=== PATIENT | male | born 1965 | race Caucasian/White ===

== ENCOUNTER → 2019-12-18 | Outpatient (CLI) | payer BC ==
--- NOTE | 2019-12-18 08:25 | MR ---
EXAMINATION TYPE: MR knee LT wo con DATE OF EXAM: 12/18/2019 COMPARISON: None HISTORY: Pain in left knee TECHNIQUE: Multiplanar, multisequence imaging of the left knee is performed without IV contrast. FINDINGS: MEDIAL MENISCUS: Abnormal increased signal is noted within the medial meniscus body and posterior hor n, the posterior horn shows linear increased signal extending to the articular surface, sagittal imag e #[id number], 30 and 31. LATERAL MENISCUS: Increased signal within the lateral meniscus appears intrasubstance CRUCIATE LIGAMENTS: No evident tear COLLATERAL LIGAMENTS: Increased signal in the popliteus tendon may be due to tendinosis or strain EXTENSOR MECHANISM: Visualized quadriceps and patellar tendons are intact. EFFUSION: No significant suprapatellar joint effusion. POPLITEAL CYST: Minimal semimembranosus gastrocnemius cyst is present. TRICOMPARTMENT SPACES: Joint space loss is present in the medial compartment CARTILAGE: Grade 3 to grade IV chondromalacia present in the medial compartment, grade 2-3 chondromal acia posterior patella., Grade 2 to grade 3 chondral malacia lateral compartment BONE MARROW SIGNAL: Probable reactive marrow signal changes are present in the medial femoral condyle . OTHER: There is subcutaneous edema changes present. This is noted predominantly at the anterior aspe ct of the proximal leg and the prepatellar location IMPRESSION: Osteoarthritis, tear the posterior horn the medial meniscus and additional findings above.
== END | disposition home or self-care (01) ==
LOC: RADMRIMAIN 06:36
PROVIDERS: ATTEND Orthopaedic Surgery
DX: M17.12 Unilateral primary osteoarthritis, left knee (principal); S83.242A Other tear of medial meniscus, current injury, left knee, initial encounter; M25.862 Other specified joint disorders, left knee; M22.42 Chondromalacia patellae, left knee; R93.6 Abnormal findings on diagnostic imaging of limbs

== ENCOUNTER → 2020-08-15 | Outpatient (CLI) | payer BC ==
[2020-08-15 09:06] LABS: Basophils % (A) 0 %; Eosinophils # (A) 0.2 k/uL (0-0.7); Eosinophils % (A) 3 %; HCT 46.3 % (39.0-53.0); HGB 16.2 gm/dL (13.0-17.5); Lymphocytes # (A) 1.6 k/uL (1.0-4.8); Lymphocytes % (A) 21 %; MCH 32.5 pg (25.0-35.0); MCHC 34.9 g/dL (31.0-37.0); MCV 93.3 fL (80.0-100.0); Mean Platelet Volume 7.1; Monocytes # (A) 0.5 k/uL (0-1.0); Monocytes % (A) 6 %; Neutrophils # (A) 5.3 k/uL (1.3-7.7); Neutrophils % (A) 68 %; Platelet Count 182 k/uL (150-450); RBC 4.97 m/uL (4.30-5.90); RDW 12.7 % (11.5-15.5); WBC 7.8 k/uL (3.8-10.6)
[2020-08-15 09:18] LABS: Potassium 4.9 mmol/L (3.5-5.1)
== END | disposition home or self-care (01) ==
LOC: LABPAT 08:31
PROVIDERS: ATTEND Orthopaedic Surgery
DX: Z01.812 Encounter for preprocedural laboratory examination (principal); I45.19 Other right bundle-branch block; M23.92 Unspecified internal derangement of left knee
CPT/HCPCS: 36415; 80051; 85025; 93005

== ENCOUNTER 2020-09-04 07:59 | Day surgery (SDC) | payer BC ==
[2020-09-02 16:17] VITALS: BMI 37.3
--- NOTE | 2020-09-03 18:44 | HP ---
HISTORY AND PHYSICAL CHIEF COMPLAINT: Left knee pain. 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 He notes increasing pain over the past 3 weeks. He notes medial pain along with swelling and giving way. It worsens with activity. He has tried anti- inflammatories in addition to activity modifications without any real resolution. PAST MEDICAL HISTORY: Significant for asthma. PAST SURGICAL HISTORY: Significant for left knee arthrotomy, hernia repair and foot surgery. CURRENT MEDICATIONS: Motrin and Combivent. ALLERGIES: He denies drug allergies. FAMILY HISTORY: Significant for cancer. SOCIAL HISTORY: Significant for previous tobacco use. REVIEW OF SYSTEMS: Sixteen-point review of systems otherwise reviewed and is noncontributory. PHYSICAL EXAMINATION: On examination, the patient is approximately 6 feet tall, 280 pounds of endomorphic habitus. HEENT exam is nonfocal. Neck is supple. He has painless passive motion of his left hip. Straight leg raise is negative. Active motion left knee -10 to 110 degrees of flexion. He has mild effusion. He is tender about the medial joint line. Collaterals are stable, Agustin's negative, Lance's elicits medial pain. His distal neurovascular exam appears intact in the left lower extremity. X-rays to include weightbearing notch, lateral and Merchant views of the left knee obtained in the office shows mild medial compartment narrowing. MRI report left knee 12/18/2019 shows a posteromedial meniscal tear along with medial compartment degenerative changes. IMPRESSION: 1. Internal derangement, left knee with symptomatic medial meniscal tear. 2. Left knee mild medial compartment osteoarthrosis. RECOMMENDATIONS: I talked to the patient at length regarding his condition along with treatment options. At this point he is having significant pain and mechanical symptoms that limit him despite previous conservative measures. After thorough discussion, he opts to proceed with surgery. We will plan to proceed with arthroscopic evaluation with probable partial medial meniscectomy. We will likely perform that as an outpatient procedure. MMODL / IJN: [id number] /
[~2020-09-04 07:59] MED LIST: DEXAMETHASONE SOD PHOSPHATE 4 MG/ML 1 ML VIAL IV ONE; LACTATED RINGERS 1,000 ML IV SCH; LIDOCAINE 1% (10MG/ML) FOR IV START INTRADERMA PRN; ONDANSETRON 4 MG/2 ML VIAL IVP ONE; SCOPOLAMINE 1.5MG/72HR PATCH TRANSDERM ONE; ceFAZolin 3 GM in SODIUM CHLORIDE 0.9% 100 ML IVPB PRN
[2020-09-04] MEDS ORDERED: LACTATED RINGERS 1,000 ML IV ONE ×2 (08:24)
[2020-09-04 08:29] VITALS: RESP 16
[2020-09-04] MEDS ORDERED: MIDAZOLAM 2 MG/2 ML VIAL ONE (09:32)
[2020-09-04] MEDS ORDERED: PROPOFOL 10 MG/ML 20 ML VIAL IV ONE (09:32)
[2020-09-04] MEDS ORDERED: fentaNYL (PF) 50 MCG/ML 2 ML AMP ONE (09:32)
[2020-09-04] MEDS ORDERED: SUCCINYLCHOLINE CHLORIDE 100 MG/5 ML SYR IV ONE (09:32)
[2020-09-04] MEDS ORDERED: LIDOCAINE 1% INJ 10MG/ML (20 ML MDV) ONE (09:32)
[2020-09-04] MEDS ORDERED: EPINEPHrine (PF) 1 ML in SODIUM CHLORIDE 0.9% IRRIGATIO 3,000 ML IRRIGATION ONE ×4 (09:50)
[2020-09-04] MEDS: HYDROmorphone 0.5 MG/0.5 ML SYRINGE IVP PRN ×3 (10:23→10:40)
--- NOTE | 2020-09-04 10:23 | P.OP ---
Date of Procedure: 09/04/20 Preoperative Diagnosis: Left knee symptomatic medial meniscal tear Postoperative Diagnosis: Left knee posterior medial meniscal tear/posterior lateral meniscal tear Procedure(s) Performed: Left knee arthroscopic partial medial meniscectomy/partial lateral meniscectomy Anesthesia: LEIA Surgeon: Federico Martin Estimated Blood Loss (ml): 10 Pathology: none sent Condition: stable Disposition: PACU Indications for Procedure: The patient's a 55-year-old gentleman who presents with progressive/persistent left knee pain and mechanical symptoms despite conservative measures. A discussion of the risks and benefits of operative intervention versus continued conservative measures. The patient. He opted to proceed with surgery. Operative risks to include infection, neurovascular injury, development of blood clots, possible incomplete resolution of symptoms, possible worsening symptoms and need for subsequent procedures was discussed. Informed consent was obtained. Operative Findings: As below Description of Procedure: The patient was brought to the operating room, and after induction of general anesthesia examined the left knee. Collaterals were stable, Agustin was negative, and posterior drawer was negative. The left lower extremity was prepped and draped in a normal fashion. A superior lateral portal was made through a 3 mm skin incision superior and lateral to the patella. This was used for outflow. A lateral portal was made through a 5 mm vertical skin incision lateral to the patella tendon above the joint line. Diagnostic arthroscopy was performed. On inspection of the medial compartment, a complex tear involving the posterior horn of the medial meniscus in the white-red junction was noted there was a large posterior flap that was displaced posteriorly.. This was debrided back to stable base with straight baskets and a motorized shaver. Corresponding grade 2-3 chondral changes were noted involving the distal medial femoral condyle. On inspection of the notch, the anterior cruciate ligament appeared to be intact. On inspection of the lateral compartment, and oblique tear involving the posterior aspect of the lateral meniscus in the white-white junction was noted. This was debrided back to stable base with a motorized shaver. The remaining lateral meniscus was stable and intact.. On inspection of the patellofemoral articulation, there is chondral fibrillation however no loose chondral fragments. The gutters were clear debris. The knee was then thoroughly irrigated. The portals were closed with Steri-Strips. A sterile dressing was applied in addition to a compression stocking. The patient was awoken from general anesthesia and transferred to recovery room in good condition. Blood loss was estimated at 10 mL. No complications were incurred.
[2020-09-04] MEDS ORDERED: KETOROLAC 15 MG/ML 1 ML VIAL IVP ONE (10:26)
[2020-09-04] MEDS ORDERED: KETOROLAC 15 MG/ML 1 ML VIAL ONE (10:28)
[2020-09-04 10:37] VITALS: TEMP 97.5
[2020-09-04] MEDS: fentaNYL (PF) 50 MCG/ML 2 ML AMP IV ONE ×2 (10:48→11:00)
[2020-09-04 11:37] VITALS: BP 133/91; PULSE 82
== END 2020-09-04 12:14 | disposition home or self-care (01) ==
LOC: OR 07:59
PROVIDERS: ATTEND Orthopaedic Surgery
DX: S83.242A Other tear of medial meniscus, current injury, left knee, initial encounter (principal); X58.XXXA Exposure to other specified factors, initial encounter; M17.12 Unilateral primary osteoarthritis, left knee; J45.909 Unspecified asthma, uncomplicated; Z87.891 Personal history of nicotine dependence; K21.9 Gastro-esophageal reflux disease without esophagitis
CPT/HCPCS: 29880; J2250; J1100; J0690; J2405; J0171; J2001; J3010; J1885; J0330; J2704; J1170